=== PATIENT | female | born 1980 | race Caucasian/White ===

== ENCOUNTER → 2016-11-07 | Outpatient (CLI) | payer OTHER ==
[~2016-11-07] MED LIST: ANAPROX DS550 MG PO; ATIVAN0.5 MG PO; BUSPIRONE HCL10 MG PO; CALCIUM1 CAP PO; CELEXA10 MG PO; CLARITIN10 MG PO; COLACE50 MG PO; CYCLOBENZAPRINE10 MG PO; CYMBALTA20 M1 PO; DAYPRO600 M1 PO; DULOXETINE HCL60 MG PO; ESTROGENS0.625 MG PO; FLEXERIL10 MG PO; FLEXERIL5 MG PO; HYCODAN 1.5 MG480 ML PO; HYDROCODONE BIT1 T11 PO; HYDROCODONE/ACE1 T14 PO; INDOCIN50 MG PO; IRON325 M1 PO; LOMOTIL 0.025 M1 TA1 PO; LORTAB 10/500 51 TAB PO; LUPRON5 MG/M1 SC; LYRICA25 MG PO; MEDROL DOSEPAK4 MG PO; MOTRIN 400 MG E4 TAB PO; MOTRIN600 MG PO; MOTRIN800 MG PO; MULTI-VITAMIN1 EACH PO; MULTIVITAMIN FO1 CAP PO; Miralax Powder255 GM PO; NAPROSYN500 MG PO; PEPCID20 MG PO; PHENERGAN25 M1 PO; PHENERGAN25 MG RC; ROBAXIN750 MG PO; SEPTRA DS 800 M1 TAB PO; SERTRALINE HYDR50 MG PO; TRAMADOL HCL50 MG PO; TYLENOL EXTRA500 MG PO; ULTRAM50 MG PO; VICODIN 5/500 505 MG PO; VICODIN ES 7501 TAB PO; XANAX0.5 MG PO; ZITHROMAX Z PA250 MG PO; ZOLOFT25 MG PO
[2016-11-07 09:13] LABS: HEMATOCRIT 42.5 % (37.0-47.0); MEAN CORPUSCULAR HGB 30.6 pg (27.0-31.0); MEAN CORPUSCULAR HGB CONC 32.9 g/dl (33.0-37.0); MEAN PLATELET VOLUME 10.3 fl (9.6-12.3); RED BLOOD COUNT 4.57 10*6/uL (4.10-5.10); RED CELL DISTRI WIDTH 12.4 % (0-14.5); WHITE BLOOD COUNT 7.8 10*3/uL (4.8-10.8)
[2016-11-07 09:38] LABS: ALBUMIN 3.7 gm/dl (3.1-4.5); ALKALINE PHOSPHATASE 97 U/L (45-117); BUN 7 mg/dl (7-24); CHLORIDE 109 mmol/L (98-107); CHOLESTEROL 172 mg/dL (<200); HDL CHOLESTEROL 26 mg/dl (40-60); LDL CHOLESTEROL 108 mg/dL (9-159); POTASSIUM 3.8 mmol/L (3.5-5.1); SGOT/AST 22 IU/L (3-35); SGPT/ALT 35 U/L (12-78); SODIUM 141 mmol/L (136-145); TOTAL PROTEIN 7.7 gm/dL (6.4-8.2); TRIGLYCERIDES 191 mg/dl (<150); VLDL CHOLESTEROL 38 mg/dL (6-40)
== END | disposition home or self-care (01) ==
LOC: LAB 08:34
PROVIDERS: Family Medicine
DX: E78.00 Pure hypercholesterolemia, unspecified (principal); E55.9 Vitamin D deficiency, unspecified; F41.1 Generalized anxiety disorder; F43.10 Post-traumatic stress disorder, unspecified; R79.89 Other specified abnormal findings of blood chemistry; X58.XXXA Exposure to other specified factors, initial encounter; Y93.89 Activity, other specified; Y92.89 Other specified places as the place of occurrence of the external cause; Y99.8 Other external cause status

== ENCOUNTER 2017-04-13 13:44 | Emergency (ER) | payer OTHER ==
[~2017-04-13] VITALS: Ht 162.5 cm; Wt 81.6 kg
[2017-04-13 13:54] VITALS: BP 129/89
== END 2017-04-13 15:19 | disposition home or self-care (01) ==
LOC: ED 13:44
DX: M77.8 Other enthesopathies, not elsewhere classified (principal); Z98.890 Other specified postprocedural states; Z90.89 Acquired absence of other organs; Z79.899 Other long term (current) drug therapy; Z88.0 Allergy status to penicillin; Z88.6 Allergy status to analgesic agent; Z88.8 Allergy status to other drugs, medicaments and biological substances

== ENCOUNTER 2017-11-04 10:28 | Emergency (ER) | payer OTHER ==
[~2017-11-04] VITALS: Ht 162.5 cm; Wt 81.6 kg
--- NOTE | ~2017-11-04 | EKG ---
[place], [place] ELECTROCARDIOGRAM REPORT NAME: SARITA RUELAS UNIT #: [id number] ROOM: DOCTOR: EPIPHANY DRAFT REPORT BIRTHDATE: [birth year] [facility] Test Date: 2017-11-04 Test Time: 10:32:12 Pat Name: SARITA RUELAS Department: Room: Gender: F [employer]er: : 1980 Requested By: PERCY SCHULTE Order Number: [id number] Reading MD: Fili Frankel MD Measurements Intervals [place] Rate: 80 P: 63 LA: 142 QRS: 55 QRSD: 99 T: 58 QT: 364 QTc: 420 Interpretive Statements Sinus rhythm Borderline T abnormalities, lateral leads Electronically Signed On 11-05-2017 19:48:37 PDT by Fili Frankel MD CM:EKGRPT:ELECTROCARDIOGRAM REPORT [id number] PERCY FARIAS DRAFT REPORT PERCY SCHULTE M.D.
[2017-11-04 11:07] LABS: BASO % 0.5 % (0.0-1.0); EOS # 0.2 10*3/uL (0.0-0.4); EOS % 1.9 % (1.0-4.0); HEMATOCRIT 41.9 % (37.0-47.0); HEMOGLOBIN 13.9 g/dl (12.0-16.0); LYMPH # 2.7 10*3/uL (1.3-4.4); LYMPH % 34.5 % (27.0-41.0); MEAN CELL VOLUME 92.3 fl (81.0-99.0); MEAN CORPUSCULAR HGB 30.6 pg (27.0-31.0); MEAN CORPUSCULAR HGB CONC 33.2 g/dl (33.0-37.0); MEAN PLATELET VOLUME 10.6 fl (9.6-12.3); MONO # 0.4 10*3/uL (0.1-1.0); MONO % 5.4 % (3.0-9.0); NEUT # 4.5 10*3/uL (2.3-7.9); NEUT % 57.3 % (47.0-73.0); PLATELET COUNT AUTOMATED 211 10*3/uL (130-400); RED BLOOD COUNT 4.54 10*6/uL (4.10-5.10); RED CELL DISTRI WIDTH 12.5 % (0-14.5); WHITE BLOOD COUNT 7.8 10*3/uL (4.8-10.8)
[2017-11-04 11:23] LABS: ALKALINE PHOSPHATASE 85 U/L (45-117); BUN 8 mg/dl (7-24); CHLORIDE 109 mmol/L (98-107); CREATININE 0.87 mg/dL (0.55-1.02); POTASSIUM 3.9 mmol/L (3.5-5.1); SGOT/AST 35 IU/L (3-35); SGPT/ALT 54 U/L (12-78); SODIUM 139 mmol/L (136-145)
[2017-11-04 11:26] LABS: TROPONIN I < 0.015 ng/ml (<0.045)
[2017-11-04 14:42] VITALS: BP 118/62
== END 2017-11-04 14:24 | disposition home or self-care (01) ==
LOC: ED 10:28
PROVIDERS: Emergency Medicine
DX: R09.1 Pleurisy (principal); F41.9 Anxiety disorder, unspecified; Z88.0 Allergy status to penicillin; Z88.6 Allergy status to analgesic agent; Z88.8 Allergy status to other drugs, medicaments and biological substances; Z79.899 Other long term (current) drug therapy; Z98.890 Other specified postprocedural states

== ENCOUNTER → 2018-03-07 | Outpatient (CLI) | payer OTHER ==
[~2018-03-07] MED LIST changes: +ATIVAN1 MG PO; +B12,B-12,B 12500 MC1 PO; +LEVAQUIN500 M2 PO; +MUCINEX ER600 MG PO; +Motrin,Rufen800 MG PO; +TESSALON PERLE100 MG PO; +VITAMIN D32000 UNI1 PO; +ZITHROMAX250 MG PO; +ZOFRAN4 MG PO; +ZOLOFT100 MG PO
== END | disposition home or self-care (01) ==
LOC: RESCLI 03-06 19:58
DX: F33.1 Major depressive disorder, recurrent, moderate (principal); F41.9 Anxiety disorder, unspecified; F41.0 Panic disorder [episodic paroxysmal anxiety]; F43.10 Post-traumatic stress disorder, unspecified; R05 Cough; Z87.891 Personal history of nicotine dependence; Z90.49 Acquired absence of other specified parts of digestive tract; Z88.0 Allergy status to penicillin; Z91.040 Latex allergy status; Z88.8 Allergy status to other drugs, medicaments and biological substances

== ENCOUNTER 2018-05-08 08:40 | Emergency (ER) | payer OTHER ==
[~2018-05-08] VITALS: Ht 162.5 cm; Wt 90.7 kg
[~2018-05-08 08:40] MED LIST changes: -ATIVAN1 MG PO; -Motrin,Rufen800 MG PO; -ZOLOFT100 MG PO
[2018-05-08 08:41] VITALS: BP 103/66
[2018-05-08] MEDS ORDERED: Motrin,Rufen800 MG PO (10:48)
[2018-05-13] MEDS ORDERED: ATIVAN1 MG PO ×2 (13:23→16:59)
[2018-05-13] MEDS ORDERED: ZOLOFT100 MG PO ×2 (13:23→16:59)
== END 2018-05-08 10:56 | disposition home or self-care (01) ==
LOC: ED 08:40
DX: S96.911A Strain of unspecified muscle and tendon at ankle and foot level, right foot, initial encounter (principal); F17.200 Nicotine dependence, unspecified, uncomplicated; Z88.0 Allergy status to penicillin; Z88.6 Allergy status to analgesic agent; Z88.8 Allergy status to other drugs, medicaments and biological substances; Z79.899 Other long term (current) drug therapy; W00.1XXA Fall from stairs and steps due to ice and snow, initial encounter; Y93.01 Activity, walking, marching and hiking; Y92.89 Other specified places as the place of occurrence of the external cause; Y99.8 Other external cause status

== ENCOUNTER 2018-10-10 23:09 | Emergency (ER) | payer OTHER ==
[~2018-10-10] VITALS: Ht 162.5 cm; Wt 88.5 kg
[~2018-10-10 23:09] MED LIST changes: +ATIVAN1 MG PO; +Motrin,Rufen800 MG PO; +ZOLOFT100 MG PO
[2018-10-10 23:12] VITALS: BP 123/77
[2018-10-11] MEDS ORDERED: VIBRAMYCIN100 MG PO (00:38)
== END 2018-10-11 00:52 | disposition home or self-care (01) ==
LOC: ED 23:09
DX: S50.871A Other superficial bite of right forearm, initial encounter (principal); F17.200 Nicotine dependence, unspecified, uncomplicated; Z88.0 Allergy status to penicillin; Z88.8 Allergy status to other drugs, medicaments and biological substances; Z91.048 Other nonmedicinal substance allergy status; Z91.040 Latex allergy status; Z88.6 Allergy status to analgesic agent; Z79.899 Other long term (current) drug therapy; Z90.710 Acquired absence of both cervix and uterus; W54.0XXA Bitten by dog, initial encounter; Y93.89 Activity, other specified; Y92.098 Other place in other non-institutional residence as the place of occurrence of the external cause; Y99.8 Other external cause status

== ENCOUNTER 2018-11-28 13:46 | Emergency (ER) | payer OTHER ==
[~2018-11-28] VITALS: Wt 81.6 kg
[~2018-11-28 13:46] MED LIST changes: +VIBRAMYCIN100 MG PO
[2018-11-28 13:49] VITALS: BP 114/67
== END 2018-11-28 15:37 | disposition home or self-care (01) ==
LOC: ED 13:46
DX: S09.90XA Unspecified injury of head, initial encounter (principal); H53.8 Other visual disturbances; R42 Dizziness and giddiness; F17.200 Nicotine dependence, unspecified, uncomplicated; Z88.0 Allergy status to penicillin; Z88.8 Allergy status to other drugs, medicaments and biological substances; Z88.6 Allergy status to analgesic agent; Z91.040 Latex allergy status; Z79.899 Other long term (current) drug therapy; W50.0XXA Accidental hit or strike by another person, initial encounter; Y93.89 Activity, other specified; Y92.89 Other specified places as the place of occurrence of the external cause; Y99.0 Civilian activity done for income or pay

== ENCOUNTER 2018-12-04 19:13 | Emergency (ER) | payer OTHER ==
[~2018-12-04] VITALS: Ht 162.5 cm; Wt 85.7 kg
[2018-12-04 19:19] VITALS: BP 94/55
[2018-12-04] MEDS ORDERED: OMNICEF300 MG PO (20:03)
[2018-12-04] MEDS ORDERED: PHENERGAN25 MG R (20:39)
== END 2018-12-04 20:32 | disposition home or self-care (01) ==
LOC: ED 19:13
DX: J02.0 Streptococcal pharyngitis (principal); H66.92 Otitis media, unspecified, left ear; F17.200 Nicotine dependence, unspecified, uncomplicated; Z98.890 Other specified postprocedural states; Z90.710 Acquired absence of both cervix and uterus; Z79.899 Other long term (current) drug therapy; Z88.0 Allergy status to penicillin; Z91.040 Latex allergy status; Z88.6 Allergy status to analgesic agent

== ENCOUNTER 2019-02-06 21:03 | Emergency (ER) | payer OTHER ==
[~2019-02-06] VITALS: Ht 160 cm; Wt 77.1 kg
[~2019-02-06 21:03] MED LIST changes: +OMNICEF300 MG PO; +PHENERGAN25 MG R
[2019-02-06 21:06] VITALS: BP 127/85
== END 2019-02-06 22:45 | disposition home or self-care (01) ==
LOC: ED 21:03
DX: S83.92XA Sprain of unspecified site of left knee, initial encounter (principal); F17.200 Nicotine dependence, unspecified, uncomplicated; Z88.0 Allergy status to penicillin; Z91.040 Latex allergy status; Z88.8 Allergy status to other drugs, medicaments and biological substances; Z88.6 Allergy status to analgesic agent; Z79.899 Other long term (current) drug therapy; X50.1XXA Overexertion from prolonged static or awkward postures, initial encounter; Y93.01 Activity, walking, marching and hiking; Y92.89 Other specified places as the place of occurrence of the external cause; Y99.8 Other external cause status

== ENCOUNTER 2019-05-14 08:37 | Emergency (ER) | payer OTHER ==
[~2019-05-14] VITALS: Ht 162.5 cm; Wt 81.6 kg
[2019-05-14 10:19] LABS: BASO # 0.1 10*3/uL (0.0-0.1); BASO % 0.7 % (0.0-1.0); EOS # 0.1 10*3/uL (0.0-0.4); EOS % 1.7 % (1.0-4.0); HEMATOCRIT 44.1 % (37.0-47.0); HEMOGLOBIN 14.4 g/dl (12.0-16.0); LYMPH # 2.2 10*3/uL (1.3-4.4); LYMPH % 29.3 % (27.0-41.0); MEAN CELL VOLUME 96.9 fl (81.0-99.0); MEAN CORPUSCULAR HGB 31.6 pg (27.0-31.0); MEAN CORPUSCULAR HGB CONC 32.7 g/dl (33.0-37.0); MEAN PLATELET VOLUME 10.2 fl (9.6-12.3); MONO # 0.5 10*3/uL (0.1-1.0); MONO % 6.6 % (3.0-9.0); NEUT # 4.6 10*3/uL (2.3-7.9); NEUT % 61.4 % (47.0-73.0); PLATELET COUNT AUTOMATED 325 10*3/uL (130-400); RED BLOOD COUNT 4.55 10*6/uL (4.10-5.10); RED CELL DISTRI WIDTH 12.5 % (0-14.5); WHITE BLOOD COUNT 7.5 10*3/uL (4.8-10.8)
[2019-05-14 10:32] LABS: BILIRUBIN NEGATIVE (NEGATIVE); BLOOD TRACE-INTACT (NEGATIVE); CLARITY CLEAR (CLEAR); COLOR YELLOW (YELLOW); GLUCOSE NEGATIVE (NEGATIVE); KETONE NEGATIVE (NEGATIVE); LEUKO ESTERASE NEGATIVE (NEGATIVE); NITRITE NEGATIVE (NEGATIVE); UROBILINOGEN 0.2 E.U./dl (0.2-1.0)
[2019-05-14 10:37] LABS: ALBUMIN 3.7 gm/dl (3.1-4.5); ALKALINE PHOSPHATASE 102 U/L (45-117); BUN 8 mg/dl (7-24); CHLORIDE 110 mmol/L (98-107); CREATININE 0.89 mg/dL (0.55-1.02); POTASSIUM 4.1 mmol/L (3.5-5.1); SGOT/AST 21 IU/L (3-35); SGPT/ALT 36 U/L (12-78); SODIUM 139 mmol/L (136-145); TOTAL PROTEIN 7.8 gm/dL (6.4-8.2)
[2019-05-14 10:40] LABS: BACTERIA TRACE
[2019-05-14] MEDS ORDERED: REGLAN10 M1 PO (10:54)
[2019-05-14 11:30] VITALS: BP 98/65
== END 2019-05-14 11:50 | disposition home or self-care (01) ==
LOC: ED 08:37
PROVIDERS: Emergency Medicine
DX: K52.9 Noninfective gastroenteritis and colitis, unspecified (principal); R11.2 Nausea with vomiting, unspecified; Z88.0 Allergy status to penicillin; Z88.8 Allergy status to other drugs, medicaments and biological substances; Z91.048 Other nonmedicinal substance allergy status; Z91.040 Latex allergy status; Z88.6 Allergy status to analgesic agent; Z79.2 Long term (current) use of antibiotics; Z79.899 Other long term (current) drug therapy; Z90.710 Acquired absence of both cervix and uterus; Z87.891 Personal history of nicotine dependence

== ENCOUNTER 2020-06-17 05:30 | Emergency (ER) | payer OTHER ==
[~2020-06-17] VITALS: Ht 162.5 cm; Wt 85.7 kg
[~2020-06-17 05:30] MED LIST changes: +REGLAN10 M1 PO
[2020-06-17 06:00] VITALS: BP 123/89
[2020-06-17] MEDS ORDERED: TESSALON PERLE100 M1 PO (07:30)
[2020-06-17] MEDS ORDERED: MUCINEX DM 30/61 TAB PO (07:30)
== END 2020-06-17 07:37 | disposition home or self-care (01) ==
LOC: ED 05:30
DX: J06.9 Acute upper respiratory infection, unspecified (principal); R05 Cough; F41.9 Anxiety disorder, unspecified; F17.200 Nicotine dependence, unspecified, uncomplicated; Z88.0 Allergy status to penicillin; Z88.8 Allergy status to other drugs, medicaments and biological substances; Z91.040 Latex allergy status; Z79.899 Other long term (current) drug therapy; Z98.890 Other specified postprocedural states; Z90.711 Acquired absence of uterus with remaining cervical stump

== ENCOUNTER → 2021-01-11 | Day surgery (SDC) | payer OTHER ==
[~2021-01-11] VITALS: Ht 162.5 cm; Wt 88.9 kg
[~2021-01-11] MED LIST changes: +DOXYCYCLINE HY100 M3 PO; +MUCINEX DM 30/61 TAB PO; +PEPCID40 MG PO; +TESSALON PERLE100 M1 PO; +XARELTO10 MG PO
[2021-01-11 06:48] VITALS: BP 119/80
[2021-01-11 09:40] VITALS: BP 131/76
[2021-01-11 09:55] VITALS: BP 120/78
[2021-01-11 10:10] VITALS: BP 136/84
[2021-01-11 10:24] VITALS: BP 112/71
[2021-01-11 10:40] VITALS: BP 105/60
== END | disposition home or self-care (01) ==
LOC: SDC 01-06 10:15
PROVIDERS: ATTEND Podiatrist
DX: M25.871 Other specified joint disorders, right ankle and foot (principal); M19.071 Primary osteoarthritis, right ankle and foot; M25.371 Other instability, right ankle; M65.871 Other synovitis and tenosynovitis, right ankle and foot; K58.9 Irritable bowel syndrome, unspecified; F41.9 Anxiety disorder, unspecified; F32.9 Major depressive disorder, single episode, unspecified; Z90.710 Acquired absence of both cervix and uterus; Z88.0 Allergy status to penicillin; Z88.6 Allergy status to analgesic agent; Z88.8 Allergy status to other drugs, medicaments and biological substances; Z20.822 Contact with and (suspected) exposure to COVID-19; Z79.899 Other long term (current) drug therapy

== ENCOUNTER 2021-09-27 19:22 | Emergency (ER) | payer OTHER ==
[~2021-09-27] VITALS: Ht 162.5 cm; Wt 89.8 kg
[2021-09-27 19:43] VITALS: BP 111/88
[2021-09-27 20:01] LABS: BILIRUBIN Negative (Negative); BLOOD 1+ (Negative); CLARITY Cloudy (Clear); COLOR Yellow (Yellow); GLUCOSE Negative (Negative); KETONE Trace (Negative); LEUKO ESTERASE 3+ (Negative); NITRITE Positive (Negative); SPECIFIC GRAVITY 1.015 (1.001-1.030)
[2021-09-27 20:03] LABS: BASO % 0.2 % (0.0-1.0); EOS % 0.1 % (1.0-4.0); HEMATOCRIT 42.7 % (37.0-47.0); LYMPH # 2.1 10*3/uL (1.3-4.4); LYMPH % 16.2 % (27.0-41.0); MEAN CELL VOLUME 93.2 fl (81.0-99.0); MEAN CORPUSCULAR HGB 31.2 pg (27.0-31.0); MEAN CORPUSCULAR HGB CONC 33.5 g/dl (33.0-37.0); MEAN PLATELET VOLUME 9.6 fl (9.6-12.3); MONO # 0.9 10*3/uL (0.1-1.0); MONO % 7.1 % (3.0-9.0); NEUT # 9.9 10*3/uL (2.3-7.9); NEUT % 76.1 % (47.0-73.0); PLATELET COUNT AUTOMATED 292 10*3/uL (130-400); RED BLOOD COUNT 4.58 10*6/uL (4.10-5.10); RED CELL DISTRI WIDTH 12.7 % (0-14.5)
[2021-09-27] MEDS ORDERED: CEFDINIR300 MG PO ×2 (20:12)
[2021-09-27 20:17] LABS: BACTERIA 4+; EPITHELIAL CELLS 0-2; WBC TNTC wbc/hpf (0-5)
[2021-09-27 20:21] LABS: ALKALINE PHOSPHATASE 101 U/L (45-117); BUN 9 mg/dl (7-24); CHLORIDE 105 mmol/L (98-107); CREATININE 0.99 mg/dL (0.55-1.02); LIPASE 95 U/L (73-393); POTASSIUM 3.3 mmol/L (3.5-5.1); SGOT/AST 33 IU/L (3-35); SGPT/ALT 60 U/L (12-78); SODIUM 139 mmol/L (136-145); TOTAL PROTEIN 7.8 gm/dL (6.4-8.2)
== END 2021-09-27 20:19 | disposition home or self-care (01) ==
LOC: ED 19:22
PROVIDERS: Emergency Medicine
DX: R30.0 Dysuria (principal); F17.200 Nicotine dependence, unspecified, uncomplicated; Z79.899 Other long term (current) drug therapy; Z88.0 Allergy status to penicillin; Z91.040 Latex allergy status; Z88.6 Allergy status to analgesic agent

== ENCOUNTER 2021-09-29 03:30 | Inpatient (IN) | payer OTHER ==
[~2021-09-29] VITALS: Ht 162.5 cm; Wt 89.6 kg
[~2021-09-29 03:30] MED LIST changes: +CEFDINIR300 MG PO
[2021-09-29 03:46] VITALS: BP 138/80
[2021-09-29 04:33] LABS: BASO % 0.3 % (0.0-1.0); EOS # 0.1 10*3/uL (0.0-0.4); EOS % 0.6 % (1.0-4.0); HEMATOCRIT 40.8 % (37.0-47.0); LYMPH # 1.9 10*3/uL (1.3-4.4); LYMPH % 16.7 % (27.0-41.0); MEAN CELL VOLUME 92.9 fl (81.0-99.0); MEAN CORPUSCULAR HGB 30.8 pg (27.0-31.0); MEAN CORPUSCULAR HGB CONC 33.1 g/dl (33.0-37.0); MEAN PLATELET VOLUME 10.1 fl (9.6-12.3); MONO # 1.1 10*3/uL (0.1-1.0); MONO % 9.3 % (3.0-9.0); NEUT # 8.3 10*3/uL (2.3-7.9); NEUT % 72.7 % (47.0-73.0); PLATELET COUNT AUTOMATED 261 10*3/uL (130-400); RED BLOOD COUNT 4.39 10*6/uL (4.10-5.10); RED CELL DISTRI WIDTH 12.7 % (0-14.5); WHITE BLOOD COUNT 11.5 10*3/uL (4.8-10.8)
[2021-09-29 04:49] LABS: ALKALINE PHOSPHATASE 99 U/L (45-117); BUN 13 mg/dl (7-24); CHLORIDE 107 mmol/L (98-107); CREATININE 1.07 mg/dL (0.55-1.02); SGOT/AST 24 IU/L (3-35); SGPT/ALT 56 U/L (12-78); SODIUM 133 mmol/L (136-145); TOTAL PROTEIN 7.6 gm/dL (6.4-8.2)
[2021-09-29 09:20] VITALS: BP 92/47
[2021-09-29 09:30] VITALS: BP 92/47
[2021-09-29 10:51] LABS: BILIRUBIN Negative (Negative); BLOOD Trace-Lysed (Negative); CLARITY Clear (Clear); COLOR Yellow (Yellow); GLUCOSE Negative (Negative); KETONE Negative (Negative); LEUKO ESTERASE Negative (Negative); NITRITE Negative (Negative); UROBILINOGEN 0.2 E.U./dl (0.0-1.0)
[2021-09-29 11:19] LABS: BACTERIA 1+
[2021-09-29 12:00] VITALS: BP 93/53
[2021-09-29 16:00] VITALS: BP 86/52
[2021-09-29 20:00] VITALS: BP 132/82
[2021-09-30] VITALS: BP 125/78
[2021-09-30 05:44] LABS: BUN 6 mg/dl (7-24); CHLORIDE 111 mmol/L (98-107); CHOLESTEROL 106 mg/dL (<200); CREATININE 0.72 mg/dL (0.55-1.02); POTASSIUM 3.8 mmol/L (3.5-5.1); SGOT/AST 28 IU/L (3-35); SGPT/ALT 44 U/L (12-78); SODIUM 141 mmol/L (136-145); TOTAL PROTEIN 6.4 gm/dL (6.4-8.2); TRIGLYCERIDES 136 mg/dl (<150)
[2021-09-30 05:51] LABS: ALKALINE PHOSPHATASE 78 U/L (45-117); LDL CHOLESTEROL 58 mg/dL (9-159)
[2021-09-30 06:12] LABS: BASO % 0.5 % (0.0-1.0); EOS # 0.2 10*3/uL (0.0-0.4); HEMATOCRIT 34.6 % (37.0-47.0); LYMPH # 2.7 10*3/uL (1.3-4.4); LYMPH % 33.6 % (27.0-41.0); MEAN CORPUSCULAR HGB CONC 32.1 g/dl (33.0-37.0); MEAN PLATELET VOLUME 10.4 fl (9.6-12.3); MONO # 0.7 10*3/uL (0.1-1.0); MONO % 8.8 % (3.0-9.0); NEUT # 4.3 10*3/uL (2.3-7.9); NEUT % 54.8 % (47.0-73.0); PLATELET COUNT AUTOMATED 256 10*3/uL (130-400); RED BLOOD COUNT 3.58 10*6/uL (4.10-5.10); RED CELL DISTRI WIDTH 12.9 % (0-14.5); WHITE BLOOD COUNT 7.9 10*3/uL (4.8-10.8)
[2021-09-30 06:35] LABS: MEAN CELL VOLUME 96.6 fl (81.0-99.0)
[2021-09-30 08:00] VITALS: BP 112/67
[2021-09-30 09:42] LABS: VITAMIN D, 25-HYDROXY 22.3 ng/mL (30-100)
[2021-09-30 12:00] VITALS: BP 112/70
[2021-09-30 16:00] VITALS: BP 107/73
[2021-09-30 20:00] VITALS: BP 121/68
[2021-10-01 06:11] LABS: BASO % 0.3 % (0.0-1.0); EOS # 0.2 10*3/uL (0.0-0.4); EOS % 2.8 % (1.0-4.0); HEMATOCRIT 37.5 % (37.0-47.0); LYMPH # 2.5 10*3/uL (1.3-4.4); LYMPH % 39.3 % (27.0-41.0); MEAN CELL VOLUME 94.2 fl (81.0-99.0); MEAN CORPUSCULAR HGB 30.7 pg (27.0-31.0); MEAN CORPUSCULAR HGB CONC 32.5 g/dl (33.0-37.0); MEAN PLATELET VOLUME 9.6 fl (9.6-12.3); MONO # 0.4 10*3/uL (0.1-1.0); MONO % 6.6 % (3.0-9.0); NEUT # 3.3 10*3/uL (2.3-7.9); NEUT % 50.7 % (47.0-73.0); PLATELET COUNT AUTOMATED 301 10*3/uL (130-400); RED BLOOD COUNT 3.98 10*6/uL (4.10-5.10); RED CELL DISTRI WIDTH 12.6 % (0-14.5); WHITE BLOOD COUNT 6.4 10*3/uL (4.8-10.8)
[2021-10-01 06:41] LABS: BUN 7 mg/dl (7-24); CHLORIDE 109 mmol/L (98-107); CREATININE 0.74 mg/dL (0.55-1.02); POTASSIUM 3.6 mmol/L (3.5-5.1); SODIUM 142 mmol/L (136-145)
[2021-10-01 08:00] VITALS: BP 102/60
[2021-10-01] MEDS ORDERED: CEFUROXIME AXE250 MG PO (09:53)
[2021-10-01] MEDS ORDERED: HYDROCODONE-AC1 EAC1 PO (09:53)
== END 2021-10-01 11:35 | disposition home or self-care (01) | DRG 872 ==
LOC: ED 03:30 → EDHOLD 07:03 → 4E 07:03 → EDHOLD 07:33 → 4E 08:30
PROVIDERS: Emergency Medicine; Internal Medicine; ADMIT Emergency Medicine; ATTEND Emergency Medicine
DX: A41.51 Sepsis due to Escherichia coli [E. coli] (principal); N10 Acute pyelonephritis; N30.01 Acute cystitis with hematuria; K52.9 Noninfective gastroenteritis and colitis, unspecified; J06.9 Acute upper respiratory infection, unspecified; G89.18 Other acute postprocedural pain; R30.0 Dysuria; F17.210 Nicotine dependence, cigarettes, uncomplicated; F41.9 Anxiety disorder, unspecified; F32.A Depression, unspecified; K21.9 Gastro-esophageal reflux disease without esophagitis; Z90.49 Acquired absence of other specified parts of digestive tract; Z90.710 Acquired absence of both cervix and uterus; Z88.0 Allergy status to penicillin; Z88.8 Allergy status to other drugs, medicaments and biological substances; Z91.040 Latex allergy status; Z80.51 Family history of malignant neoplasm of kidney; Z81.8 Family history of other mental and behavioral disorders

== ENCOUNTER 2021-12-16 13:18 | Emergency (ER) | payer OTHER ==
[~2021-12-16] VITALS: Ht 162.5 cm; Wt 87.1 kg
[~2021-12-16 13:18] MED LIST changes: +CEFUROXIME AXE250 MG PO; +HYDROCODONE-AC1 EAC1 PO
[2021-12-16 13:38] VITALS: BP 137/77
[2021-12-16] MEDS ORDERED: Percocet 325 MG1 TAB PO (15:00)
[2021-12-16] MEDS ORDERED: ONDANSETRON4 MG SL (15:00)
== END 2021-12-16 15:36 | disposition home or self-care (01) ==
LOC: ED 13:18
DX: S92.002A Unspecified fracture of left calcaneus, initial encounter for closed fracture (principal); Z88.0 Allergy status to penicillin; Z91.040 Latex allergy status; Z88.8 Allergy status to other drugs, medicaments and biological substances; Z90.49 Acquired absence of other specified parts of digestive tract; Z90.710 Acquired absence of both cervix and uterus; Z98.890 Other specified postprocedural states; Z87.891 Personal history of nicotine dependence; X58.XXXA Exposure to other specified factors, initial encounter; Y93.89 Activity, other specified; Y92.89 Other specified places as the place of occurrence of the external cause; Y99.8 Other external cause status

== ENCOUNTER 2023-01-13 15:42 | Emergency (ER) | payer OTHER ==
[~2023-01-13] VITALS: Ht 162.5 cm; Wt 81.6 kg
[~2023-01-13 15:42] MED LIST changes: +ONDANSETRON4 MG SL; +Percocet 325 MG1 TAB PO
[2023-01-13 15:50] VITALS: BP 124/75
== END 2023-01-13 18:20 | disposition left against medical advice (07) ==
LOC: ED 15:42
DX: S99.922A Unspecified injury of left foot, initial encounter (principal); Z88.8 Allergy status to other drugs, medicaments and biological substances; Z88.0 Allergy status to penicillin; Z91.040 Latex allergy status; Z53.21 Procedure and treatment not carried out due to patient leaving prior to being seen by health care provider; X50.1XXA Overexertion from prolonged static or awkward postures, initial encounter; Y93.89 Activity, other specified; Y92.89 Other specified places as the place of occurrence of the external cause; Y99.8 Other external cause status

== ENCOUNTER 2023-01-19 09:42 | Emergency (ER) | payer OTHER ==
[~2023-01-19] VITALS: Ht 162.5 cm; Wt 81.6 kg
[2023-01-19 09:48] VITALS: BP 139/79
[2023-01-19 10:14] LABS: BASO % 0.5 % (0.0-1.0); EOS % 0.3 % (1.0-4.0); LYMPH # 1.6 10*3/uL (1.3-4.4); LYMPH % 18.7 % (27.0-41.0); MEAN CELL VOLUME 93.8 fl (81.0-99.0); MEAN CORPUSCULAR HGB 32.1 pg (27.0-31.0); MEAN CORPUSCULAR HGB CONC 34.3 g/dl (33.0-37.0); MEAN PLATELET VOLUME 9.2 fl (9.6-12.3); MONO # 0.4 10*3/uL (0.1-1.0); MONO % 4.2 % (3.0-9.0); NEUT # 6.6 10*3/uL (2.3-7.9); NEUT % 75.7 % (47.0-73.0); PLATELET COUNT AUTOMATED 346 10*3/uL (130-400); RED BLOOD COUNT 4.48 10*6/uL (4.10-5.10); RED CELL DISTRI WIDTH 12.8 % (0-14.5); WHITE BLOOD COUNT 8.8 10*3/uL (4.8-10.8)
[2023-01-19 10:37] LABS: ALKALINE PHOSPHATASE 109 U/L (46-116); BUN 10 mg/dl (9-23); CHLORIDE 107 mmol/L (98-107); LIPASE 37 U/L (12-53); POTASSIUM 3.6 mmol/L (3.4-5.1); SGPT/ALT 40 U/L (5-49); TOTAL PROTEIN 7.8 gm/dL (6.0-8.0)
[2023-01-19 11:28] LABS: BILIRUBIN Negative (Negative); BLOOD Negative (Negative); CLARITY Clear (Clear); COLOR Yellow (Yellow); GLUCOSE Negative (Negative); KETONE Negative (Negative); LEUKO ESTERASE Negative (Negative); NITRITE Negative (Negative); PH 7.5 (4.5-8.0); UROBILINOGEN 0.2 E.U./dl (0.0-1.0)
[2023-01-19 11:40] LABS: BACTERIA 1+; WBC 0-2 wbc/hpf (0-5)
[2023-01-19] MEDS ORDERED: REGLAN10 M1 PO (12:05)
== END 2023-01-19 12:27 | disposition home or self-care (01) ==
LOC: ED 09:42
PROVIDERS: Emergency Medicine
DX: R11.2 Nausea with vomiting, unspecified (principal); R19.7 Diarrhea, unspecified; F41.9 Anxiety disorder, unspecified; R00.2 Palpitations; T43.225A Adverse effect of selective serotonin reuptake inhibitors, initial encounter; F32.A Depression, unspecified; Z88.0 Allergy status to penicillin; Z91.040 Latex allergy status; Z88.8 Allergy status to other drugs, medicaments and biological substances; Z98.890 Other specified postprocedural states; Z90.49 Acquired absence of other specified parts of digestive tract; Z90.710 Acquired absence of both cervix and uterus; F17.200 Nicotine dependence, unspecified, uncomplicated; Z98.51 Tubal ligation status; Y92.009 Unspecified place in unspecified non-institutional (private) residence as the place of occurrence of the external cause

== ENCOUNTER 2023-01-22 16:33 | Emergency (ER) | payer OTHER ==
[~2023-01-22] VITALS: Ht 162.5 cm; Wt 86.2 kg
[2023-01-22 17:23] LABS: BASO % 0.3 % (0.0-1.0); EOS # 0.1 10*3/uL (0.0-0.4); EOS % 1.1 % (1.0-4.0); LYMPH # 3.5 10*3/uL (1.3-4.4); LYMPH % 30.5 % (27.0-41.0); MEAN CELL VOLUME 93.2 fl (81.0-99.0); MEAN CORPUSCULAR HGB 31.8 pg (27.0-31.0); MEAN CORPUSCULAR HGB CONC 34.1 g/dl (33.0-37.0); MEAN PLATELET VOLUME 9.1 fl (9.6-12.3); MONO # 0.6 10*3/uL (0.1-1.0); MONO % 4.8 % (3.0-9.0); NEUT # 7.2 10*3/uL (2.3-7.9); PLATELET COUNT AUTOMATED 341 10*3/uL (130-400); RED CELL DISTRI WIDTH 12.7 % (0-14.5); WHITE BLOOD COUNT 11.5 10*3/uL (4.8-10.8)
[2023-01-22 17:44] LABS: ALKALINE PHOSPHATASE 97 U/L (46-116); BUN 13 mg/dl (9-23); CHLORIDE 109 mmol/L (98-107); LIPASE 44 U/L (12-53); POTASSIUM 3.5 mmol/L (3.4-5.1); SGPT/ALT 31 U/L (5-49); TOTAL PROTEIN 7.3 gm/dL (6.0-8.0)
[2023-01-22 19:13] VITALS: BP 105/46
[2023-01-22 19:27] LABS: BILIRUBIN Negative (Negative); BLOOD Negative (Negative); CLARITY Clear (Clear); COLOR Yellow (Yellow); GLUCOSE Negative (Negative); KETONE Negative (Negative); LEUKO ESTERASE Trace (Negative); NITRITE Negative (Negative); PH 5.5 (4.5-8.0); SPECIFIC GRAVITY 1.025 (1.001-1.030)
[2023-01-22 19:38] LABS: BACTERIA 1+; MUCOUS 1+; RBC 0-2 rbc/hpf (0-2)
[2023-01-22] MEDS ORDERED: PHENERGAN25 M3 PO (19:58)
== END 2023-01-22 20:20 | disposition home or self-care (01) ==
LOC: ED 16:33
PROVIDERS: Nurse Practitioner Family
DX: A08.4 Viral intestinal infection, unspecified (principal); F41.9 Anxiety disorder, unspecified; K21.9 Gastro-esophageal reflux disease without esophagitis; F32.A Depression, unspecified; Z88.0 Allergy status to penicillin; Z91.040 Latex allergy status; Z88.8 Allergy status to other drugs, medicaments and biological substances; Z98.890 Other specified postprocedural states; Z90.49 Acquired absence of other specified parts of digestive tract; Z90.710 Acquired absence of both cervix and uterus; Z98.51 Tubal ligation status; F17.200 Nicotine dependence, unspecified, uncomplicated

== ENCOUNTER → 2023-02-10 | Emergency (ER) | payer OTHER ==
[~2023-02-10] VITALS: Ht 162.5 cm; Wt 86.2 kg
[~2023-02-10] MED LIST changes: +DICYCLOMINE HYD10 MG PO; +HYDROXYZINE HCL25 MG PO; +PHENERGAN25 M3 PO; +PROMETHAZINE25 M1 PO
[2023-02-10 12:34] VITALS: BP 113/90
== END ==
LOC: ED 11:58
DX: R10.9 Unspecified abdominal pain (principal); Z88.0 Allergy status to penicillin; Z88.8 Allergy status to other drugs, medicaments and biological substances; Z91.040 Latex allergy status; Z53.21 Procedure and treatment not carried out due to patient leaving prior to being seen by health care provider

== ENCOUNTER 2023-03-13 09:44 | Emergency (ER) | payer OTHER ==
[~2023-03-13] VITALS: Wt 81.6 kg
[2023-03-13 09:54] VITALS: BP 134/71
[2023-03-13 11:24] LABS: BASO % 0.3 % (0.0-1.0); EOS # 0.2 10*3/uL (0.0-0.4); EOS % 1.6 % (1.0-4.0); HEMATOCRIT 43.8 % (37.0-47.0); LYMPH # 2.4 10*3/uL (1.3-4.4); LYMPH % 21.8 % (27.0-41.0); MEAN CELL VOLUME 95.6 fl (81.0-99.0); MEAN CORPUSCULAR HGB 31.2 pg (27.0-31.0); MEAN CORPUSCULAR HGB CONC 32.6 g/dl (33.0-37.0); MEAN PLATELET VOLUME 9.6 fl (9.6-12.3); MONO # 0.5 10*3/uL (0.1-1.0); MONO % 4.2 % (3.0-9.0); NEUT # 7.9 10*3/uL (2.3-7.9); NEUT % 71.6 % (47.0-73.0); PLATELET COUNT AUTOMATED 367 10*3/uL (130-400); RED BLOOD COUNT 4.58 10*6/uL (4.10-5.10); RED CELL DISTRI WIDTH 12.1 % (0-14.5)
[2023-03-13 11:46] LABS: ALKALINE PHOSPHATASE 107 U/L (46-116); BUN 6 mg/dl (9-23); CHLORIDE 106 mmol/L (98-107); LIPASE 40 U/L (12-53); POTASSIUM 3.8 mmol/L (3.4-5.1); SGPT/ALT 57 U/L (5-49); TOTAL PROTEIN 7.8 gm/dL (6.0-8.0)
[2023-03-13] MEDS ORDERED: VIBRA-TAB100 MG PO (11:57)
[2023-03-13] MEDS ORDERED: HYDROCODONE-AC1 EAC1 PO (11:57)
== END 2023-03-13 12:10 | disposition home or self-care (01) ==
LOC: ED 09:44
PROVIDERS: Emergency Medicine
DX: L03.311 Cellulitis of abdominal wall (principal); G89.18 Other acute postprocedural pain; F32.A Depression, unspecified; F41.9 Anxiety disorder, unspecified; R10.2 Pelvic and perineal pain; Z88.0 Allergy status to penicillin; Z88.8 Allergy status to other drugs, medicaments and biological substances; Z91.040 Latex allergy status; Z90.49 Acquired absence of other specified parts of digestive tract; Z90.710 Acquired absence of both cervix and uterus; Z98.890 Other specified postprocedural states; F17.200 Nicotine dependence, unspecified, uncomplicated; Z98.51 Tubal ligation status

== ENCOUNTER 2023-03-28 09:56 | Emergency (ER) | payer OTHER ==
[~2023-03-28] VITALS: Ht 162.5 cm; Wt 86.2 kg
[~2023-03-28 09:56] MED LIST changes: +VIBRA-TAB100 MG PO
[2023-03-28 12:47] LABS: ALKALINE PHOSPHATASE 103 U/L (46-116); BUN 7 mg/dl (9-23); CHLORIDE 108 mmol/L (98-107); LIPASE 36 U/L (12-53); POTASSIUM 4.2 mmol/L (3.4-5.1); SGPT/ALT 57 U/L (5-49); TOTAL PROTEIN 7.6 gm/dL (6.0-8.0)
[2023-03-28 12:50] LABS: BASO % 0.4 % (0.0-1.0); EOS # 0.1 10*3/uL (0.0-0.4); EOS % 1.6 % (1.0-4.0); HEMATOCRIT 43.1 % (37.0-47.0); LYMPH # 2.2 10*3/uL (1.3-4.4); LYMPH % 28.6 % (27.0-41.0); MEAN CELL VOLUME 93.9 fl (81.0-99.0); MEAN CORPUSCULAR HGB 30.5 pg (27.0-31.0); MEAN CORPUSCULAR HGB CONC 32.5 g/dl (33.0-37.0); MEAN PLATELET VOLUME 9.4 fl (9.6-12.3); MONO # 0.3 10*3/uL (0.1-1.0); MONO % 4.2 % (3.0-9.0); NEUT % 64.9 % (47.0-73.0); PLATELET COUNT AUTOMATED 331 10*3/uL (130-400); RED BLOOD COUNT 4.59 10*6/uL (4.10-5.10); RED CELL DISTRI WIDTH 11.9 % (0-14.5); WHITE BLOOD COUNT 7.7 10*3/uL (4.8-10.8)
[2023-03-28 14:56] VITALS: BP 116/88
== END 2023-03-28 15:08 | disposition home or self-care (01) ==
LOC: ED 09:56
PROVIDERS: Emergency Medicine
DX: R51.9 Headache, unspecified (principal); F32.A Depression, unspecified; F41.9 Anxiety disorder, unspecified; R11.0 Nausea; R10.2 Pelvic and perineal pain; F17.200 Nicotine dependence, unspecified, uncomplicated; Z88.0 Allergy status to penicillin; Z91.040 Latex allergy status; Z88.8 Allergy status to other drugs, medicaments and biological substances; Z90.49 Acquired absence of other specified parts of digestive tract; Z90.710 Acquired absence of both cervix and uterus; Z98.51 Tubal ligation status; Z98.890 Other specified postprocedural states

== ENCOUNTER 2023-04-22 13:37 | Emergency (ER) | payer OTHER ==
[~2023-04-22] VITALS: Ht 162.5 cm; Wt 89.8 kg
[2023-04-22 13:59] VITALS: BP 154/96
[2023-04-22] MEDS ORDERED: PROTONIX20 MG PO (14:01)
[2023-04-22] MEDS ORDERED: SODIUM CHLORIDE 0.9% 1,000 ML IV ONE (16:00)
[2023-04-22] MEDS ORDERED: Metoclopramide Hydrochloride 10 MG/2 ML AMP IV ONE (17:05)
[2023-04-22] MEDS ORDERED: diphenhydrAMINE hydrochloride 50 MG/ML VIAL IV ONE (17:05)
[2023-04-22] MEDS ORDERED: ZITHROMAX250 MG PO (18:06)
== END 2023-04-22 19:38 | disposition home or self-care (01) ==
LOC: ED 13:37
DX: J40 Bronchitis, not specified as acute or chronic (principal); Z20.822 Contact with and (suspected) exposure to COVID-19; R11.2 Nausea with vomiting, unspecified; R19.7 Diarrhea, unspecified; F41.9 Anxiety disorder, unspecified; F32.A Depression, unspecified; F17.210 Nicotine dependence, cigarettes, uncomplicated; Z91.040 Latex allergy status; Z88.8 Allergy status to other drugs, medicaments and biological substances; Z88.0 Allergy status to penicillin; Z90.49 Acquired absence of other specified parts of digestive tract; Z90.710 Acquired absence of both cervix and uterus; Z98.890 Other specified postprocedural states; Z98.51 Tubal ligation status

== ENCOUNTER 2023-05-19 17:43 | Emergency (ER) | payer OTHER ==
[~2023-05-19] VITALS: Ht 162.5 cm; Wt 89.8 kg
[~2023-05-19 17:43] MED LIST changes: +PROTONIX20 MG PO
[2023-05-19 18:01] VITALS: BP 124/77
[2023-05-19 18:32] LABS: BASO # 0.1 10*3/uL (0.0-0.1); BASO % 0.6 % (0.0-1.0); EOS # 0.2 10*3/uL (0.0-0.4); EOS % 2.1 % (1.0-4.0); HEMATOCRIT 42.9 % (37.0-47.0); LYMPH % 33.9 % (27.0-41.0); MEAN CELL VOLUME 96.8 fl (81.0-99.0); MEAN CORPUSCULAR HGB 30.5 pg (27.0-31.0); MEAN CORPUSCULAR HGB CONC 31.5 g/dl (33.0-37.0); MEAN PLATELET VOLUME 9.7 fl (9.6-12.3); MONO # 0.6 10*3/uL (0.1-1.0); NEUT # 4.9 10*3/uL (2.3-7.9); NEUT % 56.2 % (47.0-73.0); PLATELET COUNT AUTOMATED 311 10*3/uL (130-400); RED BLOOD COUNT 4.43 10*6/uL (4.10-5.10); RED CELL DISTRI WIDTH 12.7 % (0-14.5); WHITE BLOOD COUNT 8.7 10*3/uL (4.8-10.8)
[2023-05-19 18:47] LABS: ALKALINE PHOSPHATASE 103 U/L (46-116); BUN 7 mg/dl (9-23); CHLORIDE 103 mmol/L (98-107); POTASSIUM 3.8 mmol/L (3.4-5.1); SGPT/ALT 72 U/L (5-49)
[2023-05-19 18:59] LABS: BILIRUBIN Negative (Negative); BLOOD Negative (Negative); CLARITY Clear (Clear); COLOR Yellow (Yellow); GLUCOSE Negative (Negative); KETONE Negative (Negative); LEUKO ESTERASE Negative (Negative); NITRITE Negative (Negative); PH 5.5 (4.5-8.0)
[2023-05-19 19:16] LABS: BACTERIA TRACE; RBC 0-2 rbc/hpf (0-2)
[2023-05-19] MEDS ORDERED: Ondansetron Hydrochloride 4 MG TAB SL ONE (20:10)
[2023-05-19] MEDS ORDERED: Acetaminophen/Oxycodone 5 MG/325 MG TABLET PO ONE (20:10)
[2023-05-19] MEDS ORDERED: VIBRAMYCIN100 MG PO (21:45)
== END 2023-05-19 21:57 | disposition home or self-care (01) ==
LOC: ED 17:43
PROVIDERS: Internal Medicine
DX: R30.0 Dysuria (principal); M54.9 Dorsalgia, unspecified; R10.31 Right lower quadrant pain; F17.200 Nicotine dependence, unspecified, uncomplicated; Z88.0 Allergy status to penicillin; Z88.8 Allergy status to other drugs, medicaments and biological substances; Z91.048 Other nonmedicinal substance allergy status; Z91.040 Latex allergy status; Z88.6 Allergy status to analgesic agent; Z79.2 Long term (current) use of antibiotics; Z79.899 Other long term (current) drug therapy; Z90.49 Acquired absence of other specified parts of digestive tract; Z90.711 Acquired absence of uterus with remaining cervical stump; Z98.890 Other specified postprocedural states

== ENCOUNTER 2023-05-27 18:19 | Emergency (ER) | payer OTHER ==
[~2023-05-27] VITALS: Ht 162.5 cm; Wt 90.3 kg
[2023-05-27 18:28] VITALS: BP 142/97
[2023-05-27] MEDS ORDERED: HYDROmorphONE Hydrochloride 1 MG/ML SYR IV ONE (19:25)
[2023-05-27] MEDS ORDERED: IOHEXOL 300 MG/ML 100 ML VIAL IV ONE (19:30)
[2023-05-27] MEDS ORDERED: Promethazine Hydrochloride 25 MG/ML VIAL IM ONE (19:30)
[2023-05-27] MEDS ORDERED: SODIUM CHLORIDE 0.9% 1,000 ML IV SCH (19:30)
[2023-05-27 19:33] LABS: BILIRUBIN Negative (Negative); BLOOD Negative (Negative); CLARITY Clear (Clear); COLOR Yellow (Yellow); GLUCOSE Negative (Negative); KETONE Negative (Negative); LEUKO ESTERASE Negative (Negative); NITRITE Negative (Negative); PH 5.5 (4.5-8.0); UROBILINOGEN 0.2 E.U./dl (0.0-1.0)
[2023-05-27 19:46] LABS: WBC 0-2 wbc/hpf (0-5)
[2023-05-27 19:57] LABS: BASO # 0.1 10*3/uL (0.0-0.1); BASO % 0.5 % (0.0-1.0); EOS # 0.2 10*3/uL (0.0-0.4); EOS % 1.5 % (1.0-4.0); HEMATOCRIT 45.9 % (37.0-47.0); LYMPH # 3.3 10*3/uL (1.3-4.4); LYMPH % 31.3 % (27.0-41.0); MEAN CELL VOLUME 94.4 fl (81.0-99.0); MEAN CORPUSCULAR HGB 29.8 pg (27.0-31.0); MEAN CORPUSCULAR HGB CONC 31.6 g/dl (33.0-37.0); MEAN PLATELET VOLUME 9.5 fl (9.6-12.3); MONO # 0.4 10*3/uL (0.1-1.0); MONO % 3.9 % (3.0-9.0); NEUT # 6.5 10*3/uL (2.3-7.9); NEUT % 62.4 % (47.0-73.0); PLATELET COUNT AUTOMATED 367 10*3/uL (130-400); RED BLOOD COUNT 4.86 10*6/uL (4.10-5.10); RED CELL DISTRI WIDTH 12.7 % (0-14.5); WHITE BLOOD COUNT 10.4 10*3/uL (4.8-10.8)
[2023-05-27 20:08] LABS: ACT PARTIAL THROMBO TIME 26.8 SECONDS (20.0-32.1)
[2023-05-27 20:17] LABS: ALKALINE PHOSPHATASE 103 U/L (46-116); BUN 10 mg/dl (9-23); CHLORIDE 104 mmol/L (98-107); LIPASE 35 U/L (12-53); POTASSIUM 4.2 mmol/L (3.4-5.1); SGPT/ALT 67 U/L (5-49); TOTAL PROTEIN 7.8 gm/dL (6.0-8.0)
[2023-05-27] MEDS ORDERED: HYDROmorphONE Hydrochloride 0.5 MG/0.5 ML SYRINGE IV ONE (21:20)
[2023-05-27] MEDS ORDERED: PROMETHAZINE12.5 M3 PO (22:03)
== END 2023-05-27 21:54 | disposition home or self-care (01) ==
LOC: ED 18:19
PROVIDERS: Nurse Practitioner Family
DX: K76.0 Fatty (change of) liver, not elsewhere classified (principal); R11.2 Nausea with vomiting, unspecified; Z88.0 Allergy status to penicillin; Z91.040 Latex allergy status; Z88.8 Allergy status to other drugs, medicaments and biological substances; F41.9 Anxiety disorder, unspecified; F32.A Depression, unspecified; K21.9 Gastro-esophageal reflux disease without esophagitis; Z98.890 Other specified postprocedural states; Z90.710 Acquired absence of both cervix and uterus; Z90.49 Acquired absence of other specified parts of digestive tract; F17.200 Nicotine dependence, unspecified, uncomplicated

== ENCOUNTER 2023-05-29 12:03 | Emergency (ER) | payer OTHER ==
[~2023-05-29] VITALS: Ht 162.5 cm; Wt 89.8 kg
[~2023-05-29 12:03] MED LIST changes: +PROMETHAZINE12.5 M3 PO
[2023-05-29 12:26] VITALS: BP 156/100
[2023-05-29] MEDS ORDERED: Metoclopramide Hydrochloride 10 MG/2 ML AMP IV ONE (12:45)
[2023-05-29] MEDS ORDERED: SODIUM CHLORIDE 0.9% 1,000 ML IV ONE (12:45)
[2023-05-29] MEDS ORDERED: FAMOTIDINE 50 ML IV ONE (12:45)
[2023-05-29] MEDS ORDERED: diphenhydrAMINE hydrochloride 50 MG/ML VIAL IV ONE (12:45)
[2023-05-29 13:00] LABS: BASO % 0.4 % (0.0-1.0); EOS # 0.1 10*3/uL (0.0-0.4); EOS % 0.9 % (1.0-4.0); HEMATOCRIT 44.6 % (37.0-47.0); LYMPH # 1.9 10*3/uL (1.3-4.4); LYMPH % 20.7 % (27.0-41.0); MEAN CELL VOLUME 93.7 fl (81.0-99.0); MEAN CORPUSCULAR HGB CONC 32.1 g/dl (33.0-37.0); MEAN PLATELET VOLUME 9.6 fl (9.6-12.3); MONO # 0.4 10*3/uL (0.1-1.0); MONO % 4.6 % (3.0-9.0); NEUT # 6.7 10*3/uL (2.3-7.9); PLATELET COUNT AUTOMATED 347 10*3/uL (130-400); RED BLOOD COUNT 4.76 10*6/uL (4.10-5.10); RED CELL DISTRI WIDTH 12.6 % (0-14.5); WHITE BLOOD COUNT 9.2 10*3/uL (4.8-10.8)
[2023-05-29 13:23] LABS: ALKALINE PHOSPHATASE 106 U/L (46-116); BUN 7 mg/dl (9-23); CHLORIDE 104 mmol/L (98-107); LIPASE 35 U/L (12-53); POTASSIUM 3.7 mmol/L (3.4-5.1); SGPT/ALT 69 U/L (5-49); TOTAL PROTEIN 7.7 gm/dL (6.0-8.0)
[2023-05-29 13:59] LABS: BILIRUBIN Negative (Negative); BLOOD Negative (Negative); CLARITY Clear (Clear); COLOR Yellow (Yellow); GLUCOSE Negative (Negative); KETONE Negative (Negative); LEUKO ESTERASE Negative (Negative); NITRITE Negative (Negative); PH 7.5 (4.5-8.0); UROBILINOGEN 0.2 E.U./dl (0.0-1.0)
[2023-05-29 14:06] LABS: URINE AMPHETAMINES Negative (1000ng/ml); URINE BARBITURATES Negative (200ng/ml); URINE BENZODIAZEPINES Negative (200ng/ml); URINE CANNABINOIDS (THC) Negative (50ng/ml); URINE COCAINE Negative (300ng/ml); URINE METHADONE Negative (300ng/ml); URINE OPIATES Negative (300ng/ml); URINE PHENCYCLIDINE Negative (25ng/ml)
[2023-05-29 14:27] LABS: BACTERIA 2+
[2023-05-29] MEDS ORDERED: REGLAN5 MG PO (14:50)
[2023-05-29] MEDS ORDERED: CEPHALEXIN500 M1 PO (14:50)
== END 2023-05-29 13:41 | disposition home or self-care (01) ==
LOC: ED 12:03
PROVIDERS: Physician Assistant Medical
DX: R11.2 Nausea with vomiting, unspecified (principal); N39.0 Urinary tract infection, site not specified; F41.9 Anxiety disorder, unspecified; F32.A Depression, unspecified; Z88.0 Allergy status to penicillin; F17.200 Nicotine dependence, unspecified, uncomplicated; Z91.040 Latex allergy status; Z88.8 Allergy status to other drugs, medicaments and biological substances; Z98.890 Other specified postprocedural states; Z90.710 Acquired absence of both cervix and uterus; Z90.49 Acquired absence of other specified parts of digestive tract; Z98.51 Tubal ligation status; Z79.899 Other long term (current) drug therapy

== ENCOUNTER 2023-06-12 14:03 | Emergency (ER) | payer OTHER ==
[~2023-06-12] VITALS: Ht 165.1 cm; Wt 89.8 kg
[~2023-06-12 14:03] MED LIST changes: +CEPHALEXIN500 M1 PO; +REGLAN5 MG PO
[2023-06-12 14:14] VITALS: BP 151/83
[2023-06-12] MEDS ORDERED: Metoclopramide Hydrochloride 10 MG/2 ML AMP IV ONE (14:25)
[2023-06-12] MEDS ORDERED: SODIUM CHLORIDE 0.9% 1,000 ML IV ONE (14:25)
[2023-06-12 14:58] LABS: BASO # 0.1 10*3/uL (0.0-0.1); BASO % 0.9 % (0.0-1.0); EOS # 0.1 10*3/uL (0.0-0.4); EOS % 1.4 % (1.0-4.0); HEMATOCRIT 44.3 % (37.0-47.0); LYMPH # 2.3 10*3/uL (1.3-4.4); LYMPH % 28.5 % (27.0-41.0); MEAN CELL VOLUME 95.7 fl (81.0-99.0); MEAN CORPUSCULAR HGB CONC 31.4 g/dl (33.0-37.0); MEAN PLATELET VOLUME 10.2 fl (9.6-12.3); MONO # 0.5 10*3/uL (0.1-1.0); NEUT # 5.1 10*3/uL (2.3-7.9); PLATELET COUNT AUTOMATED 319 10*3/uL (130-400); RED BLOOD COUNT 4.63 10*6/uL (4.10-5.10); RED CELL DISTRI WIDTH 12.7 % (0-14.5)
[2023-06-12 15:20] LABS: ALKALINE PHOSPHATASE 101 U/L (46-116); CHLORIDE 107 mmol/L (98-107); LIPASE 44 U/L (12-53); POTASSIUM 3.8 mmol/L (3.4-5.1); SGPT/ALT 59 U/L (5-49); TOTAL PROTEIN 7.5 gm/dL (6.0-8.0)
[2023-06-12 15:22] LABS: BUN < 5 mg/dl (9-23)
== END 2023-06-12 16:42 | disposition home or self-care (01) ==
LOC: ED 14:03
PROVIDERS: Physician Assistant Medical
DX: K52.9 Noninfective gastroenteritis and colitis, unspecified (principal); Z20.822 Contact with and (suspected) exposure to COVID-19; R11.2 Nausea with vomiting, unspecified; K21.9 Gastro-esophageal reflux disease without esophagitis; F41.9 Anxiety disorder, unspecified; F32.A Depression, unspecified; Z88.0 Allergy status to penicillin; Z91.040 Latex allergy status; Z88.8 Allergy status to other drugs, medicaments and biological substances; Z98.51 Tubal ligation status; Z90.49 Acquired absence of other specified parts of digestive tract; Z90.710 Acquired absence of both cervix and uterus; Z98.890 Other specified postprocedural states; F17.200 Nicotine dependence, unspecified, uncomplicated

== ENCOUNTER 2023-07-01 10:04 | Emergency (ER) | payer OTHER ==
[~2023-07-01] VITALS: Ht 162.5 cm; Wt 89.8 kg
[2023-07-01 10:15] VITALS: BP 125/105
[2023-07-01] MEDS ORDERED: ACETAMINOPHEN 325 MG TAB PO ONE (10:30)
[2023-07-01] MEDS ORDERED: CYCLOBENZAPRINE5 M3 PO (11:51)
== END 2023-07-01 11:59 | disposition home or self-care (01) ==
LOC: ED 10:04
DX: M62.838 Other muscle spasm (principal); F41.9 Anxiety disorder, unspecified; F32.A Depression, unspecified; Z88.0 Allergy status to penicillin; Z91.040 Latex allergy status; Z88.8 Allergy status to other drugs, medicaments and biological substances; Z90.49 Acquired absence of other specified parts of digestive tract; Z90.710 Acquired absence of both cervix and uterus; Z98.890 Other specified postprocedural states; F17.200 Nicotine dependence, unspecified, uncomplicated

== ENCOUNTER 2023-07-03 15:30 | Emergency (ER) | payer OTHER ==
[~2023-07-03] VITALS: Ht 162.5 cm; Wt 89.8 kg
[~2023-07-03 15:30] MED LIST changes: +CYCLOBENZAPRINE5 M3 PO
[2023-07-03 16:04] VITALS: BP 142/93
[2023-07-03] MEDS ORDERED: ACETAMINOPHEN 325 MG TAB PO ONE (16:20)
[2023-07-03 16:33] LABS: BASO # 0.1 10*3/uL (0.0-0.1); BASO % 0.5 % (0.0-1.0); EOS # 0.1 10*3/uL (0.0-0.4); EOS % 1.2 % (1.0-4.0); HEMATOCRIT 46.5 % (37.0-47.0); LYMPH # 3.1 10*3/uL (1.3-4.4); LYMPH % 28.9 % (27.0-41.0); MEAN CELL VOLUME 93.9 fl (81.0-99.0); MEAN CORPUSCULAR HGB 30.1 pg (27.0-31.0); MEAN PLATELET VOLUME 9.7 fl (9.6-12.3); MONO # 0.6 10*3/uL (0.1-1.0); MONO % 5.3 % (3.0-9.0); NEUT # 6.8 10*3/uL (2.3-7.9); NEUT % 63.6 % (47.0-73.0); PLATELET COUNT AUTOMATED 396 10*3/uL (130-400); RED BLOOD COUNT 4.95 10*6/uL (4.10-5.10); RED CELL DISTRI WIDTH 12.6 % (0-14.5); WHITE BLOOD COUNT 10.7 10*3/uL (4.8-10.8)
[2023-07-03 18:03] LABS: ALKALINE PHOSPHATASE 115 U/L (46-116); BUN 10 mg/dl (9-23); CHLORIDE 104 mmol/L (98-107); LIPASE 51 U/L (12-53); POTASSIUM 3.5 mmol/L (3.4-5.1); SGPT/ALT 65 U/L (5-49)
== END 2023-07-03 18:20 | disposition home or self-care (01) ==
LOC: ED 15:30
PROVIDERS: Internal Medicine
DX: R10.9 Unspecified abdominal pain (principal); R11.2 Nausea with vomiting, unspecified; F41.9 Anxiety disorder, unspecified; F32.A Depression, unspecified; Z88.0 Allergy status to penicillin; Z91.040 Latex allergy status; Z88.8 Allergy status to other drugs, medicaments and biological substances; Z98.890 Other specified postprocedural states; Z90.710 Acquired absence of both cervix and uterus; Z90.49 Acquired absence of other specified parts of digestive tract; F17.200 Nicotine dependence, unspecified, uncomplicated

== ENCOUNTER 2023-07-27 10:56 | Emergency (ER) | payer OTHER ==
[~2023-07-27] VITALS: Ht 162.5 cm; Wt 88.9 kg
[2023-07-27 11:26] VITALS: BP 126/71
[2023-07-27] MEDS ORDERED: Metoclopramide Hydrochloride 10 MG/2 ML AMP IV ONE (11:40)
[2023-07-27] MEDS ORDERED: SODIUM CHLORIDE 0.9% 1,000 ML IV ONE (11:40)
[2023-07-27] MEDS ORDERED: ACETAMINOPHEN 325 MG TAB PO ONE (11:40)
[2023-07-27 11:57] LABS: BASO % 0.4 % (0.0-1.0); EOS # 0.1 10*3/uL (0.0-0.4); EOS % 0.8 % (1.0-4.0); HEMATOCRIT 46.2 % (37.0-47.0); LYMPH # 2.2 10*3/uL (1.3-4.4); LYMPH % 24.4 % (27.0-41.0); MEAN CELL VOLUME 96.5 fl (81.0-99.0); MEAN CORPUSCULAR HGB 30.7 pg (27.0-31.0); MEAN CORPUSCULAR HGB CONC 31.8 g/dl (33.0-37.0); MEAN PLATELET VOLUME 9.6 fl (9.6-12.3); MONO # 0.4 10*3/uL (0.1-1.0); MONO % 4.5 % (3.0-9.0); NEUT # 6.2 10*3/uL (2.3-7.9); NEUT % 69.7 % (47.0-73.0); PLATELET COUNT AUTOMATED 347 10*3/uL (130-400); RED BLOOD COUNT 4.79 10*6/uL (4.10-5.10); RED CELL DISTRI WIDTH 12.5 % (0-14.5)
[2023-07-27 12:15] LABS: ALKALINE PHOSPHATASE 112 U/L (46-116); BUN 9 mg/dl (9-23); CHLORIDE 108 mmol/L (98-107); LIPASE 46 U/L (12-53); POTASSIUM 3.9 mmol/L (3.4-5.1); SGPT/ALT 66 U/L (5-49); TOTAL PROTEIN 7.6 gm/dL (6.0-8.0)
[2023-07-27] MEDS ORDERED: diphenhydrAMINE hydrochloride 50 MG/ML VIAL IV ONE (12:25)
[2023-07-27 12:27] LABS: BILIRUBIN Negative (Negative); BLOOD Negative (Negative); CLARITY Clear (Clear); COLOR Yellow (Yellow); GLUCOSE Negative (Negative); KETONE Trace (Negative); LEUKO ESTERASE 1+ (Negative); NITRITE Negative (Negative)
[2023-07-27] MEDS ORDERED: PANTOPRAZOLE SO40 MG PO (12:42)
[2023-07-27] MEDS ORDERED: PROMETHAZINE HC25 M1 PO (12:43)
[2023-07-27] MEDS ORDERED: HYOSCYAMINE0.125 M2 SL (12:44)
[2023-07-27] MEDS ORDERED: LORAZEPAM0.5 M1 PO (12:44)
[2023-07-27] MEDS ORDERED: Carafate1 GM PO (12:45)
[2023-07-27] MEDS ORDERED: FAMOTIDINE20 M1 PO (12:46)
[2023-07-27 12:47] LABS: BACTERIA 3+; WBC 16-20 wbc/hpf (0-5)
[2023-07-27 12:48] LABS: URINE AMPHETAMINES Negative (1000ng/ml); URINE BARBITURATES Negative (200ng/ml); URINE BENZODIAZEPINES Negative (200ng/ml); URINE CANNABINOIDS (THC) Negative (50ng/ml); URINE COCAINE Negative (300ng/ml); URINE METHADONE Negative (300ng/ml); URINE OPIATES Positive (300ng/ml); URINE PHENCYCLIDINE Negative (25ng/ml)
[2023-07-27 12:48] LABS: MUCOUS 2+
[2023-07-27] MEDS ORDERED: SEPTDS PO (13:47)
== END 2023-07-27 13:56 | disposition home or self-care (01) ==
LOC: ED 10:56
PROVIDERS: Physician Assistant Medical
DX: N39.0 Urinary tract infection, site not specified (principal); R11.2 Nausea with vomiting, unspecified; Z98.890 Other specified postprocedural states; K21.9 Gastro-esophageal reflux disease without esophagitis; F17.200 Nicotine dependence, unspecified, uncomplicated; Z88.0 Allergy status to penicillin; Z91.048 Other nonmedicinal substance allergy status; Z91.040 Latex allergy status; Z88.8 Allergy status to other drugs, medicaments and biological substances; Z88.6 Allergy status to analgesic agent; Z79.899 Other long term (current) drug therapy; Z79.2 Long term (current) use of antibiotics; Z90.49 Acquired absence of other specified parts of digestive tract; Z90.711 Acquired absence of uterus with remaining cervical stump; R19.7 Diarrhea, unspecified

== ENCOUNTER 2023-10-23 17:48 | Emergency (ER) | payer OTHER ==
[~2023-10-23] VITALS: Ht 162.5 cm; Wt 87.1 kg
[~2023-10-23 17:48] MED LIST changes: +Carafate1 GM PO; +FAMOTIDINE20 M1 PO; +HYOSCYAMINE0.125 M2 SL; +LORAZEPAM0.5 M1 PO; +PANTOPRAZOLE SO40 MG PO; +PROMETHAZINE HC25 M1 PO; +SEPTDS PO
[2023-10-23 18:03] VITALS: BP 132/101
[2023-10-23] MEDS ORDERED: Lidocaine Hydrochloride 2% 10 ML AMP SC ONE (18:15)
[2023-10-23] MEDS ORDERED: Acetaminophen/Oxycodone 5 MG/325 MG TABLET PO ONE (18:30)
[2023-10-23] MEDS ORDERED: Bacitracin Zinc/Neomycin/Pol 15 GM TUBE T ONE (19:10)
== END 2023-10-23 19:51 | disposition home or self-care (01) ==
LOC: ED 17:48
DX: L03.011 Cellulitis of right finger (principal); K21.9 Gastro-esophageal reflux disease without esophagitis; F41.9 Anxiety disorder, unspecified; F32.A Depression, unspecified; F17.200 Nicotine dependence, unspecified, uncomplicated; Z88.0 Allergy status to penicillin; Z91.048 Other nonmedicinal substance allergy status; Z91.040 Latex allergy status; Z88.8 Allergy status to other drugs, medicaments and biological substances; Z98.890 Other specified postprocedural states; Z90.49 Acquired absence of other specified parts of digestive tract; Z90.710 Acquired absence of both cervix and uterus

== ENCOUNTER 2024-09-03 14:46 | Emergency (ER) | payer OTHER ==
[~2024-09-03] VITALS: Ht 162.5 cm; Wt 86.6 kg
[2024-09-03 15:16] VITALS: BP 149/90
== END 2024-09-03 18:13 | disposition left against medical advice (07) ==
LOC: ED 14:46
DX: M25.522 Pain in left elbow (principal); Z53.21 Procedure and treatment not carried out due to patient leaving prior to being seen by health care provider

== ENCOUNTER 2024-09-27 16:38 | Emergency (ER) | payer OTHER ==
[~2024-09-27] VITALS: Ht 162.5 cm; Wt 88.5 kg
[2024-09-27 16:50] VITALS: BP 139/92
[2024-09-27] MEDS ORDERED: ACETAMINOPHEN 325 MG TAB PO ONE (17:05)
[2024-09-27] MEDS ORDERED: NAPROXEN 250 MG TAB PO ONE (17:05)
== END 2024-09-27 17:17 | disposition home or self-care (01) ==
LOC: ED 16:38
DX: S56.912A Strain of unspecified muscles, fascia and tendons at forearm level, left arm, initial encounter (principal); Z88.0 Allergy status to penicillin; Z88.5 Allergy status to narcotic agent; Z88.8 Allergy status to other drugs, medicaments and biological substances; Z90.721 Acquired absence of ovaries, unilateral; Z90.49 Acquired absence of other specified parts of digestive tract; Z98.890 Other specified postprocedural states; Z90.710 Acquired absence of both cervix and uterus; X58.XXXA Exposure to other specified factors, initial encounter; Y93.89 Activity, other specified; Y92.89 Other specified places as the place of occurrence of the external cause; Y99.8 Other external cause status

== ENCOUNTER → 2024-10-02 | Outpatient (CLI) | payer OTHER | END | disposition home or self-care (01) | LOC: ORTHO 00:23 | PROVIDERS: ATTEND Orthopaedic Surgery | DX: M25.522 Pain in left elbow (principal) ==

== ENCOUNTER 2024-11-30 13:44 | Emergency (ER) | payer OTHER ==
[~2024-11-30] VITALS: Ht 162.5 cm; Wt 86.2 kg
[2024-11-30 14:38] VITALS: BP 114/94
[2024-11-30] MEDS ORDERED: Acetaminophen/Oxycodone 5 MG/325 MG TABLET PO ONE (14:50)
[2024-11-30] MEDS ORDERED: MELOXICAM15 MG PO (15:16)
== END 2024-11-30 16:20 | disposition home or self-care (01) ==
LOC: ED 13:44
DX: S93.601A Unspecified sprain of right foot, initial encounter (principal); F17.200 Nicotine dependence, unspecified, uncomplicated; Z88.0 Allergy status to penicillin; Z91.048 Other nonmedicinal substance allergy status; Z91.040 Latex allergy status; Z88.8 Allergy status to other drugs, medicaments and biological substances; Z88.6 Allergy status to analgesic agent; Z79.899 Other long term (current) drug therapy; Z90.49 Acquired absence of other specified parts of digestive tract; Z90.710 Acquired absence of both cervix and uterus; Z98.890 Other specified postprocedural states; W10.8XXA Fall (on) (from) other stairs and steps, initial encounter; Y93.E2 Activity, laundry; Y92.89 Other specified places as the place of occurrence of the external cause; Y99.8 Other external cause status

== ENCOUNTER → 2025-01-18 | Outpatient (CLI) | payer OTHER ==
[~2025-01-18] MED LIST changes: +MELOXICAM15 MG PO
== END | disposition home or self-care (01) ==
LOC: MRI 12:09
PROVIDERS: ATTEND Orthopaedic Surgery
DX: M25.822 Other specified joint disorders, left elbow (principal); M77.8 Other enthesopathies, not elsewhere classified; G56.92 Unspecified mononeuropathy of left upper limb

== ENCOUNTER → 2025-02-11 | Day surgery (SDC) | payer OTHER ==
[2025-02-09 11:32] LABS: BUN 11 mg/dl (9-23)
[~2025-02-11] VITALS: Ht 162.5 cm; Wt 88.9 kg
[2025-02-11] VITALS (8 sets, daily range): BP systolic 107–146; BP diastolic 61–100
[~2025-02-11] MED LIST changes: +ACETAMINOPHEN 100 ML IV ONE; +BENTYL PO; +HYDROmorphONE Hydrochloride 0.5 MG/0.5 ML SYRINGE IV PRN; +HYDROmorphONE Hydrochloride 0.5 MG/0.5 ML SYRINGE ONE; +Ketamine Hydrochloride 50 MG/5 ML SYRINGE IV ONE; +Lactated Ringer's Solution 1,000 ML IV ONE; +Lidocaine Hydrochloride 30 ML VIAL ONE; +Lidocaine Hydrochloride 5 ML VIAL IV ONE; +MAGNESIUM SULFATE 1 GM/2 ML VIAL IV ONE; +Midazolam Hydrochloride 2 MG/2 ML VIAL IV ONE; +Ondansetron Hydrochloride 4 MG/2 ML VIAL IV ONE; +PROZAC20 MG PO; +ROCURONIUM BROMIDE 50 MG/5 ML SYRINGE IV ONE; +SEVOFLURANE 250 ML BOT INH ONE; +SUGAMMADEX SODIUM 200 MG/2 ML VIAL IV ONE; +TRAZODONE50 MG PO
== END | disposition home or self-care (01) ==
LOC: SDC 02-09 08:00
PROVIDERS: ATTEND Orthopaedic Surgery
DX: M77.12 Lateral epicondylitis, left elbow (principal); M89.8X2 Other specified disorders of bone, upper arm; E11.9 Type 2 diabetes mellitus without complications; I11.0 Hypertensive heart disease with heart failure; F32.A Depression, unspecified; F41.9 Anxiety disorder, unspecified; K21.9 Gastro-esophageal reflux disease without esophagitis; K58.9 Irritable bowel syndrome, unspecified; Z88.8 Allergy status to other drugs, medicaments and biological substances; Z79.899 Other long term (current) drug therapy; Z90.710 Acquired absence of both cervix and uterus; Z90.49 Acquired absence of other specified parts of digestive tract